=== PATIENT | male | born 1975 | race Hispanic/Latino ===

== ENCOUNTER 2017-04-10 20:18 | Emergency (ER) | payer MEDICARE ==
[2017-04-10 21:18] VITALS: BP 131/79; PULSE 59; RESP 16; TEMP 99.4; O2SAT 99
[2017-04-10] MEDS ORDERED: Bacitracin OINT 15GM TOP STA (22:23)
--- NOTE | 2017-04-10 22:30 | ED PDOC ---
HPI: General Adult Time Seen by Provider: 04/10/17 21:49 Chief Complaint (Nursing): Abnormal Skin Integrity History Per: Patient Additional Complaint(s): Pt. states 2 days ago he accidentally cut his L thumb with a scissor. He applied OTC tissue glue and this afternoon wound began to bleed prompting ED visit. Denies new trauma, fever, discharge, pain, swelling. Past Medical History Reviewed: Historical Data, Nursing Documentation, Vital Signs Vital Signs: Last Vital Signs Temp 99.4 F 04/10/17 21:15 Pulse 59 L 04/10/17 21:15 Resp 16 04/10/17 21:15 BP 131/79 04/10/17 21:15 Pulse Ox 99 04/10/17 22:30 - Family History Family History: States: No Known Family Hx - Allergies Allergies/Adverse Reactions: Allergies Allergy/AdvReac Type Severity Reaction Status Date / Time codeine Allergy RASH Verified 04/10/17 21:18 morphine Allergy HEADACHE Verified 04/10/17 21:18 Review of Systems ROS Statement: Except As Marked, All Systems Reviewed And Found Negative Physical Exam - Physical Exam Appears: Positive for: Well, Non-toxic, No Acute Distress Skin: Positive for: Normal Color, Warm. Negative for: Rash Extremity: Positive for: Other (L thumb with superficial abrasion without active bleeding, swelling, erythema, or open wound) - ECG O2 Sat by Pulse Oximetry: 99 - Progress ED Course And Treament: Wound cleansed, bacitracin ointment applied, DSD applied. Tetanus shot was offered to patient but states he does not want it now and he will instead get his tetanus shot via his PMD. Disposition - Clinical Impression Clinical Impression: Abrasion - Patient ED Disposition Is Patient to be Admitted: No - Disposition Disposition: Routine/Home Disposition Time: 22:30 Condition: STABLE Instructions: Abrasion (ED) Print Language: CANADIAN
== END 2017-04-10 22:30 | disposition home or self-care (01) ==
LOC: H.ER 20:18
DX: S61.012A Laceration without foreign body of left thumb without damage to nail, initial encounter (principal); W26.8XXA Contact with other sharp object(s), not elsewhere classified, initial encounter; Y92.89 Other specified places as the place of occurrence of the external cause